=== PATIENT | female | born 2000 | race Caucasian/White ===

== ENCOUNTER 2024-10-31 08:13 | Emergency (ER) | payer OTHER ==
[2024-10-31] MEDS: Ondansetron 4 MG Tab.DIS PO ONE (08:57)
[2024-10-31 09:01] LABS: O2 DELIVERY DEVICE ROOM AIR
[2024-10-31 09:02] LABS: BASOPHILS PERCENT AUTO 0.8 % (0.0-1.0); EOSINOPHILS PERCENT AUTO 1.2 % (1.0-3.0); HEMATOCRIT 33.1 % (37.0-47.0); LYMPHOCYTES PERCENT AUTO 23.6 % (20.5-50.1); MEAN CORPUSCULAR HEMOGLOBIN 31.1 pg (27.0-34.0); MEAN CORPUSCULAR HGB CONC 36.3 g/dL (33.0-35.0); MEAN CORPUSCULAR VOLUME 85.8 fL (80-100); MONOCYTES PERCENT AUTO 6.7 % (2-8); NEUTROPHILS PERCENT AUTO 67.7 % (42.2-75.2); PLATELET COUNT,PLT 222 10^3/uL (150-450); RED BLOOD CELL COUNT 3.86 10^6/uL (4.2-5.4); WHITE BLOOD CELL COUNT,WBC 6.5 10^3/uL (5.0-10.0)
[2024-10-31 09:03] LABS: BASE EXCESS VENOUS -0.5 mmol/l ((-2)-(+3)); BICARBONATE,VENOUS 25 mmol/l (19-25); O2 SATURATION VENOUS 51.4 % (60-80); PCO2 VENOUS 45 mmHg (41-51); PH,VENOUS 7.36 (7.31-7.41); PO2 VENOUS 30 mmHg (35-42)
[2024-10-31 09:05] LABS: CARBOXYHEMOGLOBIN 23.5 % (0-10)
[2024-10-31 09:25] LABS: ANION GAP 14.9 mEq/L (7-13); BLOOD UREA NITROGEN,BUN 12 mg/dL (7-18); CALCIUM 9.4 mg/dL (8.5-10.1); CARBON DIOXIDE,CO2 26 mmol/L (21-32); CHLORIDE,CL 106 mmol/L (98-107); CREATINE KINASE,CK 50 U/L (16-191); CREATININE 0.87 mg/dL (0.55-1.02); EST CRCL DRUG DOSING (CG) 89.72 mL/min; GLUCOSE RANDOM 99 mg/dL (70-99); POTASSIUM,K 3.9 mmol/L (3.5-5.1); SODIUM,NA 143 mmol/L (136-145)
[2024-10-31 09:26] LABS: ESTIMATED GFR 95 mL/min (>=60)
[2024-10-31] MEDS: Acetaminophen 325 MG Tab PO ONE (09:53)
== END 2024-10-31 13:20 | disposition home or self-care (01) ==
LOC: DL.ED 08:13
DX: T58.91XA Toxic effect of carbon monoxide from unspecified source, accidental (unintentional), initial encounter (principal)
CPT/HCPCS: 36415; 80048; 81025; 82375; 82550; 82803; 84484; 85025; 93005; 99284; A9270; 93010